=== PATIENT | female | born 1990 | race Caucasian/White ===

== ENCOUNTER 2016-07-16 08:34 | Emergency (ER) | payer OTHER | END 2016-07-16 09:25 | disposition home or self-care (01) | LOC: ER 08:34 | DX: S93.432A Sprain of tibiofibular ligament of left ankle, initial encounter (principal); F32.9 Major depressive disorder, single episode, unspecified; F17.210 Nicotine dependence, cigarettes, uncomplicated; Z98.51 Tubal ligation status; X50.1XXA Overexertion from prolonged static or awkward postures, initial encounter; Y92.480 Sidewalk as the place of occurrence of the external cause ==